=== PATIENT | female | born 1930 | race Caucasian/White ===

== ENCOUNTER 2019-02-13 14:38 | Inpatient (IN) | payer MEDICARE, OTHER ==
[2019-02-13] VITALS (11 sets, daily range): BP systolic 130–178; BP diastolic 71–128
[~2019-02-13] VITALS: Ht 175.3 cm; Wt 68.2 kg
[2019-02-13] MEDS ORDERED: normal saline 1000ML IV soln IV ONE (14:45)
[2019-02-13 15:32] LABS: BASOPHILS # (AUTO) 0.1 X10'3 (0-0.2); EOSINOPHILS # (AUTO) 0.2 X10'3 (0-0.9); EOSINOPHILS % (AUTO) 2.8 % (0-6); HEMATOCRIT 35.7 % (35.0-45.0); LYMPHOCYTES # (AUTO) 0.9 X10'3 (1.1-4.8); LYMPHOCYTES % (AUTO) 10.7 % (21-51); MEAN CORPUSCULAR HEMOGLOBIN 31.6 PG (27.0-31.0); MEAN CORPUSCULAR HGB CONC 33.6 g/dL (33.0-36.5); MEAN CORPUSCULAR VOLUME 94.1 FL (78-98); MEAN PLATELET VOLUME 8.6 FL (7.4-10.4); MONOCYTES # (AUTO) 0.8 X10'3 (0-0.9); MONOCYTES % (AUTO) 9.3 % (2-12); NEUTROPHILS # (AUTO) 6.7 X10'3 (1.8-7.7); NEUTROPHILS % (AUTO) 76.2 % (42-75); PLATELET COUNT 190 X10'3 (140-440); RED CELL DISTRIBUTION WIDTH 13.5 % (11.5-14.5); WHITE BLOOD COUNT 8.8 X10'3 (4.5-11.0)
[2019-02-13 15:44] LABS: PARTIAL THROMBOPLASTIN TIME 51 SECONDS (22-32)
[2019-02-13 15:46] LABS: ALANINE AMINOTRANSFERASE 23 U/L (12-78); ALBUMIN 3.6 G/DL (3.4-5.0); ALBUMIN/GLOBULIN RATIO 0.9 (1.1-1.5); ALKALINE PHOSPHATASE 73 IU/L (46-116); ANION GAP 7 (8-16); ASPARTATE AMINO TRANSFERASE 28 U/L (10-37); BILIRUBIN,TOTAL 1.1 MG/DL (0.1-1.0); BLOOD UREA NITROGEN 19 MG/DL (7-18); CALCIUM 9.7 MG/DL (8.5-10.1); CHLORIDE 107 MMOL/L (99-107); CREATININE 0.76 MG/DL (0.40-0.90); GLUCOSE 85 MG/DL (70-104); POTASSIUM 3.3 MMOL/L (3.5-5.1); SODIUM 144 MMOL/L (135-145); TOTAL CARBON DIOXIDE 30.5 MMOL/L (24-32); TOTAL PROTEIN 7.5 G/DL (6.4-8.2); eGFR 72 ML/MIN
--- NOTE | 2019-02-13 16:25 | NUR ---
PT UP TO BEDSIDE COMMODE, FELT LIKE SHE HAD TO BOOP. WHEN SHE STOOD LARGE AMOUNT OF BLOOD AND LARGE CLOTS NOTED. DR. THORPE INFORMED. PT WAS CLEANED UP, LINEN AND GOWN CHANGED.
[2019-02-13] MEDS ORDERED: magnesium 2GM in 50ml NS 50 ML IV PRN (16:30)
[2019-02-13] MEDS ORDERED: magnesium Cl slow-release 64mg tablet PO PRN (16:30)
[2019-02-13] MEDS ORDERED: potassium CL 10mEq/100ml bag 100 ML IV PRN ×2 (16:30)
[2019-02-13] MEDS ORDERED: potassium Cl 20 mEq SR tablet PO PRN (16:30)
[2019-02-13] MEDS ORDERED: magnesium 4gm in 100ml NS 100 ML IV PRN (16:30)
[2019-02-13] MEDS ORDERED: ondansetron/PF 4mg/2ml inj IV PRN (16:30)
[2019-02-13] MEDS ORDERED: FURO40TA4 PO (17:36)
[2019-02-13] MEDS ORDERED: WARF-55 PO (17:36)
[2019-02-13] MEDS ORDERED: METO-395 PO (17:36)
[2019-02-13] MEDS ORDERED: WARF-65 PO (17:36)
[2019-02-13] MEDS ORDERED: POTA8TAB3 PO (17:36)
[2019-02-13] MEDS ORDERED: ALEN70TA37 PO (17:36)
[2019-02-13] MEDS: normal saline 1000ml 1,000 ML IV SCH ×2 (18:01→20:04)
--- NOTE | 2019-02-13 18:35 | NUR ---
Called to give report to PCU. PCU unable to take report at this time.
--- NOTE | 2019-02-13 18:50 | NUR ---
Called PCU to give report. PCU unable to take report.
--- NOTE | 2019-02-13 19:00 | NUR ---
PT CLEANED UP AFTER SHE HAD ABOUT COCONUT SIZED AMOUNT OF CLOTS FROM HER RECTUM. PT IS DOING WELL. BRIEF APPLIED TO PT.
--- NOTE | 2019-02-13 22:00 | NUR ---
pt resting on her side. no s&s of distress.
[2019-02-13] MEDS ORDERED: acetaminophen 325mg tablet PO PRN (23:15)
--- NOTE | 2019-02-13 23:24 | NUR ---
pt c/o abd pain with srooling. request tylenol and call Dr Castillo and orders received
[2019-02-14] VITALS (22 sets, daily range): BP systolic 86–145; BP diastolic 42–97
--- NOTE | 2019-02-14 00:10 | NUR ---
py inc of blood in attends with large red clots and skin care given and tolerated well/
[2019-02-14] MEDS: potassium Cl 20 mEq SR tablet PO PRN (00:18)
--- NOTE | 2019-02-14 01:00 | NUR ---
darting on pt completed pt rolled over for sleep.
--- NOTE | 2019-02-14 03:00 | NUR ---
resting eyes closed without changes.
--- NOTE | 2019-02-14 03:35 | NUR ---
awoke up to bedside commode to void and lg amt of liquid bloody stool with large clots.
[2019-02-14] MEDS: normal saline 1000ml 1,000 ML IV SCH ×5 (05:00→18:48)
--- NOTE | 2019-02-14 05:08 | NUR ---
resting eyes closed without changes.
--- NOTE | 2019-02-14 06:30 | NUR ---
Problems reprioritized. Patient report given, questions answered & plan of care reviewed with Francesco Yeung. Addendum: 02/14/19 at 0630 by Yanira Otero RN Amended: Links added.
[2019-02-14 07:43] LABS: ALBUMIN 2.5 G/DL (3.4-5.0); ANION GAP 4 (8-16); BLOOD UREA NITROGEN 17 MG/DL (7-18); BUN/CREATININE RATIO 26.2 (6.6-38.0); CHLORIDE 113 MMOL/L (99-107); CREATININE 0.65 MG/DL (0.40-0.90); GLUCOSE 83 MG/DL (70-104); MAGNESIUM 1.7 MG/DL (1.5-2.4); POTASSIUM 3.9 MMOL/L (3.5-5.1); SODIUM 144 MMOL/L (135-145); TOTAL CARBON DIOXIDE 27.3 MMOL/L (24-32); eGFR 86 ML/MIN
[2019-02-14 07:48] LABS: BASOPHILS # (AUTO) 0.1 X10'3 (0-0.2); BASOPHILS % (AUTO) 1.2 % (0-1); EOSINOPHILS # (AUTO) 0.2 X10'3 (0-0.9); EOSINOPHILS % (AUTO) 3.1 % (0-6); HEMOGLOBIN 7.3 g/dl (12.0-16.0); LYMPHOCYTES # (AUTO) 0.9 X10'3 (1.1-4.8); LYMPHOCYTES % (AUTO) 16.6 % (21-51); MEAN CORPUSCULAR HEMOGLOBIN 31.8 PG (27.0-31.0); MEAN CORPUSCULAR HGB CONC 34.2 g/dL (33.0-36.5); MEAN PLATELET VOLUME 8.4 FL (7.4-10.4); MONOCYTES # (AUTO) 0.6 X10'3 (0-0.9); MONOCYTES % (AUTO) 10.1 % (2-12); NEUTROPHILS # (AUTO) 3.9 X10'3 (1.8-7.7); PLATELET COUNT 171 X10'3 (140-440); RED BLOOD COUNT 2.31 X10'6 (4.20-5.60); RED CELL DISTRIBUTION WIDTH 13.2 % (11.5-14.5); WHITE BLOOD COUNT 5.7 X10'3 (4.5-11.0)
[2019-02-14 07:52] LABS: HEMATOCRIT 21.5 % (35.0-45.0)
[2019-02-14] MEDS: K and/or MAG REPLACEMENT MC SCH (08:00)
--- NOTE | 2019-02-14 08:37 | NUR ---
Dr Estrada was called at around 0800 regarding patient's H&H of 7.3 and 21.5, and that her prior level was 12 and 35.7. Natalie asked about bleeding. I verified that per overnight houseperson her depends were saturated with blood when they changed them. I mentioned patient was asleep when I last her. Natalie said to monitor patient and keep an eye on her Q4hr H&H levels. She said she would order a GIB scan. No orders for transfusion were given or mentioned.
--- NOTE | 2019-02-14 09:57 | NUR ---
Transferred to 2008.
--- NOTE | 2019-02-14 10:36 | NUR ---
1000-Patient arrived to unit. Awake/ alert. A little ANDREAFSKI. States rectal bleeding started late yesterday morning, was more a "whoosh" not a correction issue. Dr Vaz and Miriam Wilkinson at bedside. Plan is to transfuse 2 uPRBC's. Monitor INR. Patient in afib. Potential for scope with Dr Parish today, remains NPO.
[2019-02-14] MEDS ORDERED: PEG 3350/Na sulf,bicarb,Cl/KCl oral sol 4 liter bottle PO ONE (12:00)
--- NOTE | 2019-02-14 12:19 | NUR ---
1100- Dr becker here. Plan is for CT with IV contrast, oral prep and colonoscopy tomorrow late morning. 1230- Last INR 2.4, plan for vitamin K today.
[2019-02-14] MEDS ORDERED: iohexol 300mg/ml 100ml inj. ONE (12:51)
[2019-02-14] MEDS ORDERED: phytonadione inj. 5 MG in normal saline 100ml IV soln 99.5 ML IV ONE (13:15)
[2019-02-14 16:03] LABS: HEMATOCRIT 28.2 % (35.0-45.0); HEMOGLOBIN 9.7 g/dl (12.0-16.0); MEAN CORPUSCULAR HEMOGLOBIN 31.2 PG (27.0-31.0); MEAN CORPUSCULAR HGB CONC 34.2 g/dL (33.0-36.5); MEAN CORPUSCULAR VOLUME 91.3 FL (78-98); MEAN PLATELET VOLUME 8.4 FL (7.4-10.4); PLATELET COUNT 180 X10'3 (140-440); RED BLOOD COUNT 3.09 X10'6 (4.20-5.60); RED CELL DISTRIBUTION WIDTH 14.3 % (11.5-14.5); WHITE BLOOD COUNT 7.3 X10'3 (4.5-11.0)
--- NOTE | 2019-02-14 16:11 | NUR ---
1615- Dr Parish called for an update. Read the CT results and reported results from golcésarly prep, blood in stool, min to mod blood present.
--- NOTE | 2019-02-14 17:30 | NUR ---
1630- Called H&H to Tammy Wilkinson, H&H 9.7/ 28.2. Ordered H&H q 6. recheck INR at 1999. 1715- Large bloody incontinent stool then up to bedside, small stool with stool present, continuing golytely. 1730- bloody stool incontinent.
--- NOTE | 2019-02-14 18:17 | NUR ---
Problems reprioritized. Patient report given, questions answered & plan of care reviewed with Rosie.
--- NOTE | 2019-02-14 18:20 | NUR ---
Patient in room CICU 2008. I have received report from Dolores REY and had the opportunity to ask questions and assume patient care. Patient resting comfortably in bed, awake and alert/oriented x4. Vitals WNL, HR in low 100s in atrial fibrillation. Bowel prep in process. Will continue to monitor closely.
[2019-02-14 20:08] LABS: HEMATOCRIT 28.4 % (35.0-45.0); HEMOGLOBIN 9.8 g/dl (12.0-16.0); MEAN CORPUSCULAR HEMOGLOBIN 31.3 PG (27.0-31.0); MEAN CORPUSCULAR HGB CONC 34.5 g/dL (33.0-36.5); MEAN CORPUSCULAR VOLUME 90.8 FL (78-98); MEAN PLATELET VOLUME 8.2 FL (7.4-10.4); PLATELET COUNT 197 X10'3 (140-440); RED BLOOD COUNT 3.12 X10'6 (4.20-5.60); RED CELL DISTRIBUTION WIDTH 14.4 % (11.5-14.5)
[2019-02-14 20:15] LABS: PARTIAL THROMBOPLASTIN TIME 39 SECONDS (22-32)
--- NOTE | 2019-02-14 22:22 | NUR ---
Spoke with GI nurse, states Dr. Parish plans to take patient to GI lab at approx. 0700 tomorrow for colonoscopy and possible EGD.
[2019-02-15] VITALS (31 sets, daily range): BP systolic 94–143; BP diastolic 36–83
[2019-02-15 02:12] LABS: BASOPHILS # (AUTO) 0.1 X10'3 (0-0.2); EOSINOPHILS # (AUTO) 0.3 X10'3 (0-0.9); EOSINOPHILS % (AUTO) 3.5 % (0-6); HEMOGLOBIN 8.7 g/dl (12.0-16.0); LYMPHOCYTES % (AUTO) 13.7 % (21-51); MEAN CORPUSCULAR HEMOGLOBIN 31.5 PG (27.0-31.0); MEAN CORPUSCULAR HGB CONC 34.8 g/dL (33.0-36.5); MEAN CORPUSCULAR VOLUME 90.5 FL (78-98); MONOCYTES # (AUTO) 0.7 X10'3 (0-0.9); MONOCYTES % (AUTO) 9.1 % (2-12); NEUTROPHILS # (AUTO) 5.3 X10'3 (1.8-7.7); NEUTROPHILS % (AUTO) 72.7 % (42-75); PLATELET COUNT 160 X10'3 (140-440); RED BLOOD COUNT 2.76 X10'6 (4.20-5.60); RED CELL DISTRIBUTION WIDTH 14.8 % (11.5-14.5); WHITE BLOOD COUNT 7.3 X10'3 (4.5-11.0)
[2019-02-15 02:21] LABS: ALBUMIN 2.5 G/DL (3.4-5.0); ANION GAP 9 (8-16); BLOOD UREA NITROGEN 14 MG/DL (7-18); BUN/CREATININE RATIO 23.7 (6.6-38.0); CALCIUM 7.8 MG/DL (8.5-10.1); CHLORIDE 111 MMOL/L (99-107); CREATININE 0.59 MG/DL (0.40-0.90); GLUCOSE 76 MG/DL (70-104); POTASSIUM 3.1 MMOL/L (3.5-5.1); SODIUM 144 MMOL/L (135-145); eGFR > 90 ML/MIN
[2019-02-15] MEDS: potassium Cl 20 mEq SR tablet PO PRN ×2 (04:28→09:01)
--- NOTE | 2019-02-15 06:14 | NUR ---
Problems reprioritized. Patient report given, questions answered & plan of care reviewed with Woody REY.
--- NOTE | 2019-02-15 06:15 | NUR ---
Patient in room CICU 2008. I have received report from KRISSY Bae and had the opportunity to ask questions and assume patient care.
[2019-02-15] MEDS ORDERED: fentaNYL/PF 50MCG/1 ML 2ML syringe ONE (06:19)
[2019-02-15] MEDS ORDERED: MIDAZolam 5mg/5ml vial ONE (06:19)
[2019-02-15] MEDS ORDERED: LIDOcaine Viscous 15ml cup ONE (06:19)
[2019-02-15 06:30] LABS: MAGNESIUM 1.7 MG/DL (1.5-2.4)
--- NOTE | 2019-02-15 06:30 | NUR ---
Pt out to GI lab.
[2019-02-15] MEDS: K and/or MAG REPLACEMENT MC SCH (08:00)
--- NOTE | 2019-02-15 08:15 | NUR ---
Pt back from GI lab.
[2019-02-15 11:26] LABS: HEMATOCRIT 24.1 % (35.0-45.0); HEMOGLOBIN 8.2 g/dl (12.0-16.0); MEAN CORPUSCULAR HEMOGLOBIN 31.3 PG (27.0-31.0); MEAN CORPUSCULAR HGB CONC 34.1 g/dL (33.0-36.5); MEAN CORPUSCULAR VOLUME 91.7 FL (78-98); MEAN PLATELET VOLUME 8.1 FL (7.4-10.4); PLATELET COUNT 165 X10'3 (140-440); RED BLOOD COUNT 2.63 X10'6 (4.20-5.60); RED CELL DISTRIBUTION WIDTH 15.2 % (11.5-14.5); WHITE BLOOD COUNT 7.2 X10'3 (4.5-11.0)
[2019-02-15 11:46] LABS: ALANINE AMINOTRANSFERASE 14 U/L (12-78); ALBUMIN 2.6 G/DL (3.4-5.0); ALKALINE PHOSPHATASE 46 IU/L (46-116); ANION GAP 8 (8-16); ASPARTATE AMINO TRANSFERASE 20 U/L (10-37); BILIRUBIN,TOTAL 1.2 MG/DL (0.1-1.0); BLOOD UREA NITROGEN 11 MG/DL (7-18); BUN/CREATININE RATIO 19.3 (6.6-38.0); CALCIUM 7.6 MG/DL (8.5-10.1); CHLORIDE 112 MMOL/L (99-107); CREATININE 0.57 MG/DL (0.40-0.90); GLUCOSE 103 MG/DL (70-104); POTASSIUM 3.4 MMOL/L (3.5-5.1); SODIUM 145 MMOL/L (135-145); TOTAL PROTEIN 5.1 G/DL (6.4-8.2); eGFR > 90 ML/MIN
[2019-02-15] MEDS ORDERED: non-formulary drug (Alendronate Sodium 1 TAB) PO SCH (12:40)
[2019-02-15 14:49] LABS: HEMATOCRIT 24.2 % (35.0-45.0); HEMOGLOBIN 8.3 g/dl (12.0-16.0); MEAN CORPUSCULAR HEMOGLOBIN 31.5 PG (27.0-31.0); MEAN CORPUSCULAR HGB CONC 34.1 g/dL (33.0-36.5); MEAN CORPUSCULAR VOLUME 92.4 FL (78-98); PLATELET COUNT 174 X10'3 (140-440); RED BLOOD COUNT 2.62 X10'6 (4.20-5.60); RED CELL DISTRIBUTION WIDTH 14.8 % (11.5-14.5); WHITE BLOOD COUNT 7.5 X10'3 (4.5-11.0)
--- NOTE | 2019-02-15 18:18 | NUR ---
Problems reprioritized. Patient report given, questions answered & plan of care reviewed with KRISSY Basurto.
--- NOTE | 2019-02-15 18:23 | NUR ---
assumed care from Parrish REY no questions or concerns after assuming care
--- NOTE | 2019-02-15 19:14 | NUR ---
patient in bed covers on talking and laughing on phone with what appears to be family rr even un labored no observable s/s of acute stress at this time will continue to monitor
[2019-02-15 20:22] LABS: HEMATOCRIT 24.7 % (35.0-45.0); HEMOGLOBIN 8.4 g/dl (12.0-16.0); MEAN CORPUSCULAR HEMOGLOBIN 31.3 PG (27.0-31.0); MEAN CORPUSCULAR HGB CONC 34.1 g/dL (33.0-36.5); MEAN PLATELET VOLUME 7.9 FL (7.4-10.4); PLATELET COUNT 179 X10'3 (140-440); RED BLOOD COUNT 2.68 X10'6 (4.20-5.60); RED CELL DISTRIBUTION WIDTH 14.8 % (11.5-14.5); WHITE BLOOD COUNT 7.6 X10'3 (4.5-11.0)
--- NOTE | 2019-02-15 21:15 | NUR ---
patient in bed on left side covers on eyes closed rr even un labored no observable s/s of acute stress at this time will continue to monitor
--- NOTE | 2019-02-15 23:30 | NUR ---
PATIENT IN BED ROLLED FROM SIDE TO SUPINE POSITION RR EVEN UN LABORED EYES ARE CLOSED NO OBSERVABLE S/S OF ACUTE STRESS AT THIS TIME WILL CONTINUE TO MONITOR
[2019-02-16] VITALS (22 sets, daily range): BP systolic 93–133; BP diastolic 40–78
[2019-02-16] MEDS: normal saline 1000ml 1,000 ML IV SCH ×2 (00:38→04:30)
--- NOTE | 2019-02-16 01:39 | NUR ---
WOKE PATIENT UP TO SEE HOW SHE WAS DOING PATIENT STATES " I AM COMFORTABLE I WILL BE IN THE HOSPITAL." PATIENT APPEARS TO BE RESTING WELL, PATIENTS RR EVEN UN LABORED NO OBSERVABLE S/S OF ACUTE STRESS AT THIS TIME
--- NOTE | 2019-02-16 02:11 | NUR ---
PATIENT UP TO BEDSIDE COMMODE
[2019-02-16 02:48] LABS: BASOPHILS # (AUTO) 0.1 X10'3 (0-0.2); BASOPHILS % (AUTO) 0.7 % (0-1); EOSINOPHILS # (AUTO) 0.4 X10'3 (0-0.9); EOSINOPHILS % (AUTO) 5.3 % (0-6); HEMATOCRIT 23.7 % (35.0-45.0); HEMOGLOBIN 8.2 g/dl (12.0-16.0); LYMPHOCYTES # (AUTO) 1.2 X10'3 (1.1-4.8); LYMPHOCYTES % (AUTO) 15.1 % (21-51); MEAN CORPUSCULAR HEMOGLOBIN 31.8 PG (27.0-31.0); MEAN CORPUSCULAR HGB CONC 34.7 g/dL (33.0-36.5); MEAN CORPUSCULAR VOLUME 91.7 FL (78-98); MEAN PLATELET VOLUME 7.9 FL (7.4-10.4); MONOCYTES # (AUTO) 1.2 X10'3 (0-0.9); MONOCYTES % (AUTO) 15.1 % (2-12); NEUTROPHILS % (AUTO) 63.8 % (42-75); PLATELET COUNT 174 X10'3 (140-440); RED BLOOD COUNT 2.58 X10'6 (4.20-5.60); RED CELL DISTRIBUTION WIDTH 14.9 % (11.5-14.5); WHITE BLOOD COUNT 7.9 X10'3 (4.5-11.0)
[2019-02-16 03:12] LABS: TOTAL CELLS COUNTED 100
[2019-02-16 03:13] LABS: PLATELET ESTIMATE NORMAL
--- NOTE | 2019-02-16 04:35 | NUR ---
REFRESHED PATIENTS ICE WATER,PATIENT IN BED SUPINE COVERS ON EYES CLOSED RR EVEN UN LABORED NO OBSERVABLE S/S OF ACUTE STRESS AT THIS TIME WILL CONTINUE TO MONITOR
[2019-02-16 05:21] LABS: HEMATOCRIT 23.8 % (35.0-45.0); HEMOGLOBIN 8.2 g/dl (12.0-16.0); MEAN CORPUSCULAR HEMOGLOBIN 31.7 PG (27.0-31.0); MEAN CORPUSCULAR HGB CONC 34.4 g/dL (33.0-36.5); MEAN PLATELET VOLUME 8.3 FL (7.4-10.4); PLATELET COUNT 172 X10'3 (140-440); RED BLOOD COUNT 2.58 X10'6 (4.20-5.60); RED CELL DISTRIBUTION WIDTH 15.1 % (11.5-14.5); WHITE BLOOD COUNT 7.4 X10'3 (4.5-11.0)
[2019-02-16 05:37] LABS: ALANINE AMINOTRANSFERASE 12 U/L (12-78); ALBUMIN 2.6 G/DL (3.4-5.0); ALKALINE PHOSPHATASE 46 IU/L (46-116); ANION GAP 4 (8-16); ASPARTATE AMINO TRANSFERASE 18 U/L (10-37); BILIRUBIN,TOTAL 0.7 MG/DL (0.1-1.0); BLOOD UREA NITROGEN 11 MG/DL (7-18); BUN/CREATININE RATIO 14.1 (6.6-38.0); CHLORIDE 115 MMOL/L (99-107); CREATININE 0.78 MG/DL (0.40-0.90); GLUCOSE 105 MG/DL (70-104); MAGNESIUM 1.7 MG/DL (1.5-2.4); POTASSIUM 3.5 MMOL/L (3.5-5.1); SODIUM 145 MMOL/L (135-145); TOTAL CARBON DIOXIDE 25.8 MMOL/L (24-32); TOTAL PROTEIN 5.2 G/DL (6.4-8.2); eGFR 70 ML/MIN
--- NOTE | 2019-02-16 06:21 | NUR ---
SBAR TO TRAN REY NO QUESTIONS OR CONCERNS AFTER ASSUMING CARE
--- NOTE | 2019-02-16 06:30 | NUR ---
Patient in room CICU 2008. I have received report from KRISSY Basurto and had the opportunity to ask questions and assume patient care.
[2019-02-16] MEDS: K and/or MAG REPLACEMENT MC SCH (08:00)
[2019-02-16] MEDS: furosemide 20MG tablet PO SCH (08:28)
[2019-02-16] MEDS: potassium chloride 8mEq ER tablet PO SCH (08:28)
[2019-02-16] MEDS: metoprolol succinate 25mg (24-HOUR) SR. Tablet PO SCH (08:28)
[2019-02-16 12:20] LABS: ALANINE AMINOTRANSFERASE 17 U/L (12-78); ALBUMIN 2.7 G/DL (3.4-5.0); ALBUMIN/GLOBULIN RATIO 0.9 (1.1-1.5); ALKALINE PHOSPHATASE 50 IU/L (46-116); ANION GAP 5 (8-16); ASPARTATE AMINO TRANSFERASE 18 U/L (10-37); BILIRUBIN,TOTAL 0.7 MG/DL (0.1-1.0); BLOOD UREA NITROGEN 9 MG/DL (7-18); BUN/CREATININE RATIO 12.3 (6.6-38.0); CHLORIDE 114 MMOL/L (99-107); CREATININE 0.73 MG/DL (0.40-0.90); GLUCOSE 130 MG/DL (70-104); POTASSIUM 3.3 MMOL/L (3.5-5.1); SODIUM 145 MMOL/L (135-145); TOTAL CARBON DIOXIDE 25.8 MMOL/L (24-32); TOTAL PROTEIN 5.6 G/DL (6.4-8.2); eGFR 75 ML/MIN
--- NOTE | 2019-02-16 18:13 | NUR ---
assumed care from Parrish REY no questions or concerns after assuming care
--- NOTE | 2019-02-16 18:44 | NUR ---
Dr. Lr at bedside with patient
--- NOTE | 2019-02-16 19:15 | NUR ---
I have received report from KRISSY Basurto and had the opportunity to ask questions and assume patient care.
--- NOTE | 2019-02-16 19:15 | NUR ---
called report to Dionne REY patient will be going to bed 310 Rachel REY no questions or concerns after report given [employer] eye glasses earings 4 yellow metal rings shoes cell phone wireless tony 2 chargers bra,pants,shirt
--- NOTE | 2019-02-16 19:40 | NUR ---
Patient arrived to [facility] Unit room 310 via ICU bed. With all known belongings. Patient vitals signs stable. Will continue to monitor
[2019-02-16] MEDS: warfarin 3mg tablet PO SCH (20:17)
[2019-02-17 02:00] VITALS: BP 122/67
[2019-02-17 02:56] LABS: BASOPHILS # (AUTO) 0.1 X10'3 (0-0.2); BASOPHILS % (AUTO) 0.6 % (0-1); EOSINOPHILS # (AUTO) 0.2 X10'3 (0-0.9); LYMPHOCYTES # (AUTO) 0.8 X10'3 (1.1-4.8); MEAN PLATELET VOLUME 8.9 FL (7.4-10.4)
[2019-02-17 03:27] LABS: EOSINOPHILS % (AUTO) 2.1 % (0-6); HEMATOCRIT 25.1 % (35.0-45.0); HEMOGLOBIN 8.4 g/dl (12.0-16.0); LYMPHOCYTES % (AUTO) 8.3 % (21-51); MEAN CORPUSCULAR HEMOGLOBIN 31.3 PG (27.0-31.0); MEAN CORPUSCULAR HGB CONC 33.3 g/dL (33.0-36.5); MEAN CORPUSCULAR VOLUME 93.9 FL (78-98); NEUTROPHILS # (AUTO) 7.5 X10'3 (1.8-7.7); PLATELET COUNT 181 X10'3 (140-440); RED BLOOD COUNT 2.67 X10'6 (4.20-5.60); WHITE BLOOD COUNT 9.6 X10'3 (4.5-11.0)
[2019-02-17 03:29] LABS: MAGNESIUM 1.9 MG/DL (1.5-2.4)
[2019-02-17 06:00] VITALS: BP 117/59
--- NOTE | 2019-02-17 06:17 | NUR ---
Problems reprioritized. Patient report given, questions answered & plan of care reviewed with KRISSY Blake and KRISSY Puente.
--- NOTE | 2019-02-17 06:40 | NUR ---
Patient in room MED 310. I have received report from KRISSY Truong and had the opportunity to ask questions and assume patient care.
[2019-02-17] MEDS ORDERED: magnesium Cl slow-release 64mg tablet PO PRN (06:50)
[2019-02-17] MEDS ORDERED: magnesium 2GM in 50ml NS 50 ML IV PRN (06:50)
[2019-02-17] MEDS ORDERED: potassium Cl 20 mEq SR tablet PO PRN (06:50)
[2019-02-17] MEDS ORDERED: potassium CL 10mEq/100ml bag 100 ML IV PRN ×2 (06:50)
[2019-02-17] MEDS ORDERED: magnesium 4gm in 100ml NS 100 ML IV PRN (06:50)
[2019-02-17] MEDS: potassium chloride 8mEq ER tablet PO SCH (07:15)
[2019-02-17] MEDS: metoprolol succinate 25mg (24-HOUR) SR. Tablet PO SCH (07:15)
[2019-02-17] MEDS: furosemide 20MG tablet PO SCH (07:15)
[2019-02-17] MEDS: K and/or MAG REPLACEMENT MC SCH (08:00)
[2019-02-17 08:48] LABS: ALANINE AMINOTRANSFERASE 13 U/L (12-78); ALBUMIN 2.8 G/DL (3.4-5.0); ALKALINE PHOSPHATASE 48 IU/L (46-116); ANION GAP 6 (8-16); ASPARTATE AMINO TRANSFERASE 19 U/L (10-37); BILIRUBIN,TOTAL 0.8 MG/DL (0.1-1.0); BLOOD UREA NITROGEN 8 MG/DL (7-18); BUN/CREATININE RATIO 11.9 (6.6-38.0); CALCIUM 8.4 MG/DL (8.5-10.1); CHLORIDE 112 MMOL/L (99-107); CREATININE 0.67 MG/DL (0.40-0.90); GLUCOSE 101 MG/DL (70-104); POTASSIUM 3.6 MMOL/L (3.5-5.1); SODIUM 146 MMOL/L (135-145); TOTAL CARBON DIOXIDE 27.9 MMOL/L (24-32); TOTAL PROTEIN 5.7 G/DL (6.4-8.2); eGFR 83 ML/MIN
[2019-02-17 11:00] VITALS: BP 108/60
[2019-02-17 11:51] LABS: ALANINE AMINOTRANSFERASE 17 U/L (12-78); ALBUMIN 2.8 G/DL (3.4-5.0); ALBUMIN/GLOBULIN RATIO 0.9 (1.1-1.5); ALKALINE PHOSPHATASE 51 IU/L (46-116); ANION GAP 4 (8-16); ASPARTATE AMINO TRANSFERASE 17 U/L (10-37); BILIRUBIN,TOTAL 0.7 MG/DL (0.1-1.0); BLOOD UREA NITROGEN 7 MG/DL (7-18); BUN/CREATININE RATIO 13.5 (6.6-38.0); CALCIUM 8.5 MG/DL (8.5-10.1); CHLORIDE 110 MMOL/L (99-107); CREATININE 0.52 MG/DL (0.40-0.90); GLUCOSE 96 MG/DL (70-104); POTASSIUM 3.3 MMOL/L (3.5-5.1); SODIUM 145 MMOL/L (135-145); TOTAL CARBON DIOXIDE 30.9 MMOL/L (24-32); TOTAL PROTEIN 5.8 G/DL (6.4-8.2); eGFR > 90 ML/MIN
--- NOTE | 2019-02-17 12:06 | NUR ---
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 Pt/family seen by RD for written/verbal high fiber nutrition ed w/ RD contact information provided. Pt PO 50% avg meals reports good appetite but portions simply too big. PO decent given age. LBM 02/15. Will continue to monitor. Rec: 1. continue regular diet 2. bowel care if constipation 3. weekly wts Addendum: 02/17/19 at [address] Amended: Links added.
[2019-02-17] MEDS ORDERED: furosemide 20 MG/2 ML vial IV ONE (12:45)
[2019-02-17] MEDS ORDERED: albuterol 2.5 MG/3 ML nebule NEB PRN (12:55)
[2019-02-17] MEDS: potassium Cl 20 mEq SR tablet PO PRN ×2 (13:46→20:29)
--- NOTE | 2019-02-17 13:59 | NUR ---
page to RT: rm 310 pt. Elaine Wagner needs a breathing treatment. thanks! KRISSY Paul [phone]
[2019-02-17 15:00] VITALS: BP 98/53
--- NOTE | 2019-02-17 15:04 | NUR ---
Student documentation: I have reviewed and agree with all interventions, assessments performed and documented by MEGHANA Smith.
--- NOTE | 2019-02-17 15:05 | NUR ---
pt. 1100 lab draw showed K at 3.3. started K replacement per protocol.
[2019-02-17 18:00] VITALS: BP 106/49
--- NOTE | 2019-02-17 18:54 | NUR ---
Patient in room MED 310. I have received report from Beverly REY and had the opportunity to ask questions and assume patient care.
--- NOTE | 2019-02-17 19:04 | NUR ---
Problems reprioritized. Patient report given, questions answered & plan of care reviewed with KRISSY Bright.
--- NOTE | 2019-02-17 19:06 | NUR ---
I have reviewed and agree with all interventions, assessments performed and documented by KRISSY Blake.
[2019-02-17] MEDS: warfarin 3mg tablet PO SCH (20:29)
[2019-02-17 22:00] VITALS: BP 118/62
[2019-02-18 02:00] VITALS: BP 107/71
[2019-02-18 03:08] LABS: BASOPHILS # (AUTO) 0.1 X10'3 (0-0.2); BASOPHILS % (AUTO) 0.8 % (0-1); EOSINOPHILS # (AUTO) 0.4 X10'3 (0-0.9); EOSINOPHILS % (AUTO) 5.6 % (0-6); HEMATOCRIT 23.8 % (35.0-45.0); HEMOGLOBIN 8.1 g/dl (12.0-16.0); LYMPHOCYTES # (AUTO) 0.8 X10'3 (1.1-4.8); LYMPHOCYTES % (AUTO) 11.1 % (21-51); MEAN CORPUSCULAR HEMOGLOBIN 31.5 PG (27.0-31.0); MEAN CORPUSCULAR HGB CONC 34.2 g/dL (33.0-36.5); MEAN CORPUSCULAR VOLUME 92.3 FL (78-98); MONOCYTES # (AUTO) 0.9 X10'3 (0-0.9); MONOCYTES % (AUTO) 12.5 % (2-12); NEUTROPHILS # (AUTO) 5.3 X10'3 (1.8-7.7); PLATELET COUNT 189 X10'3 (140-440); RED BLOOD COUNT 2.58 X10'6 (4.20-5.60); RED CELL DISTRIBUTION WIDTH 14.6 % (11.5-14.5); WHITE BLOOD COUNT 7.6 X10'3 (4.5-11.0)
[2019-02-18 03:34] LABS: MAGNESIUM 1.7 MG/DL (1.5-2.4)
[2019-02-18 04:34] LABS: ALBUMIN 2.7 G/DL (3.4-5.0); ANION GAP 6 (8-16); BLOOD UREA NITROGEN 12 MG/DL (7-18); BUN/CREATININE RATIO 17.6 (6.6-38.0); CALCIUM 8.4 MG/DL (8.5-10.1); CHLORIDE 110 MMOL/L (99-107); CREATININE 0.68 MG/DL (0.40-0.90); GLUCOSE 101 MG/DL (70-104); POTASSIUM 3.5 MMOL/L (3.5-5.1); SODIUM 145 MMOL/L (135-145); TOTAL CARBON DIOXIDE 29.2 MMOL/L (24-32); eGFR 82 ML/MIN
--- NOTE | 2019-02-18 06:32 | NUR ---
Problems reprioritized. Patient report given, questions answered & plan of care reviewed with Jeanne Yeung.
--- NOTE | 2019-02-18 06:32 | NUR ---
Problems reprioritized. Patient report given, questions answered & plan of care reviewed with Jeanne REY.
--- NOTE | 2019-02-18 06:36 | NUR ---
Patient in room MED 310. I have received report from Deangelo REY and had the opportunity to ask questions and assume patient care.
[2019-02-18 07:00] VITALS: BP 99/64
[2019-02-18] MEDS: metoprolol succinate 25mg (24-HOUR) SR. Tablet PO SCH (08:00)
[2019-02-18] MEDS: K and/or MAG REPLACEMENT MC SCH (08:59)
[2019-02-18] MEDS: furosemide 20MG tablet PO SCH (09:01)
[2019-02-18] MEDS: potassium chloride 8mEq ER tablet PO SCH (09:02)
[2019-02-18 11:00] VITALS: BP 117/69
[2019-02-18 11:34] LABS: ALANINE AMINOTRANSFERASE 16 U/L (12-78); ALBUMIN 2.9 G/DL (3.4-5.0); ALBUMIN/GLOBULIN RATIO 0.9 (1.1-1.5); ALKALINE PHOSPHATASE 54 IU/L (46-116); ANION GAP 5 (8-16); ASPARTATE AMINO TRANSFERASE 18 U/L (10-37); BILIRUBIN,TOTAL 0.8 MG/DL (0.1-1.0); BLOOD UREA NITROGEN 14 MG/DL (7-18); BUN/CREATININE RATIO 21.5 (6.6-38.0); CALCIUM 8.8 MG/DL (8.5-10.1); CHLORIDE 109 MMOL/L (99-107); CREATININE 0.65 MG/DL (0.40-0.90); GLUCOSE 96 MG/DL (70-104); POTASSIUM 3.5 MMOL/L (3.5-5.1); SODIUM 145 MMOL/L (135-145); TOTAL CARBON DIOXIDE 31.2 MMOL/L (24-32); TOTAL PROTEIN 6.1 G/DL (6.4-8.2); eGFR 86 ML/MIN
--- NOTE | 2019-02-18 14:20 | NUR ---
Patient was given all discharge instructions and she stated understanding and agreed with POC. Dressing to L and R arm skin tears were changed after photos taken. No s/s of complications noted to either skin tear. IV's to lower R arm and upper R arm removed with catheter intact and no s/s of complications. Pt tolerated well. Pt was assisted to dress. All belongings accounted for. She was taken via wheelchair to private vehicle.
== END 2019-02-18 14:20 | disposition home health service (06) | DRG 813 ==
LOC: ER 14:39 → ED HOLD 16:30 → PCU 3S 19:25 → CICU 2S 02-14 09:43 → MED 3N 02-16 19:40
PROVIDERS: ADMIT Internal Medicine; ATTEND Internal Medicine
PROC: 30233K1 Transfusion of Nonautologous Frozen Plasma into Peripheral Vein, Percutaneous Approach (ICD-10-PCS; 2019-02-14)
PROC: 30233N1 Transfusion of Nonautologous Red Blood Cells into Peripheral Vein, Percutaneous Approach (ICD-10-PCS; 2019-02-14)
PROC: 0DJ08ZZ Inspection of Upper Intestinal Tract, Via Natural or Artificial Opening Endoscopic (ICD-10-PCS; principal; 2019-02-15)
PROC: 0DJD8ZZ Inspection of Lower Intestinal Tract, Via Natural or Artificial Opening Endoscopic (ICD-10-PCS; 2019-02-15)
DX: D68.32 Hemorrhagic disorder due to extrinsic circulating anticoagulants (principal); K57.31 Diverticulosis of large intestine without perforation or abscess with bleeding; I48.20 Chronic atrial fibrillation, unspecified; E87.1 Hypo-osmolality and hyponatremia; D62 Acute posthemorrhagic anemia; T45.515A Adverse effect of anticoagulants, initial encounter; N28.1 Cyst of kidney, acquired; M81.0 Age-related osteoporosis without current pathological fracture; Z96.652 Presence of left artificial knee joint; E87.6 Hypokalemia; I10 Essential (primary) hypertension; M41.9 Scoliosis, unspecified; D50.0 Iron deficiency anemia secondary to blood loss (chronic); R09.02 Hypoxemia; Y92.89 Other specified places as the place of occurrence of the external cause; Z90.710 Acquired absence of both cervix and uterus; Z79.01 Long term (current) use of anticoagulants; Z79.899 Other long term (current) drug therapy; Z86.19 Personal history of other infectious and parasitic diseases
CPT/HCPCS: 36415; 43235; 45378; 71045; 74177; 80048; 80053; 83735; 83880; 85025; 85027; 85610; 85730; 86885; 86900; 86901; 86920; 87081; 93005; 94640; 94760; 97110; 97116; 97161; 97530; 99152; 99153; 99285; A4620; G0378; J1940; J2250; J2405; J3010; J3430; J7030; J7040; P9016; P9059; Q9967

== ENCOUNTER 2020-03-30 16:36 | Emergency (ER) | payer MEDICARE, OTHER ==
[~2020-03-30] VITALS: Ht 175.3 cm; Wt 63.4 kg
[~2020-03-30 16:36] MED LIST: ALEN70TA37 PO; FURO40TA4 PO; METO-395 PO; POTA8TAB3 PO; WARF-55 PO; WARF-65 PO
--- NOTE | 2020-03-30 16:58 | NUR ---
TO CT VIA [facility]
--- NOTE | 2020-03-30 17:07 | NUR ---
AWAITING FOR PATIENT TO RETURN TO ROOM FROM CT.
[2020-03-30 18:00] VITALS: BP 166/93
== END 2020-03-30 18:07 | disposition home or self-care (01) ==
LOC: ER 16:37
DX: S00.03XA Contusion of scalp, initial encounter (principal); S00.83XA Contusion of other part of head, initial encounter; I10 Essential (primary) hypertension; Z79.899 Other long term (current) drug therapy; Z79.01 Long term (current) use of anticoagulants; W01.0XXA Fall on same level from slipping, tripping and stumbling without subsequent striking against object, initial encounter; Y93.89 Activity, other specified; Y92.89 Other specified places as the place of occurrence of the external cause; Y99.8 Other external cause status
CPT/HCPCS: 70450; 72125; 99285